=== PATIENT | female | born 1990 | race Caucasian/White ===

== ENCOUNTER 2017-08-08 09:06 | Emergency (ER) | payer MEDICAID ==
[~2017-08-08] VITALS: Wt 51.0 kg
[~2017-08-08 09:06] MED LIST: FER325 PO; IBUP800T25 PO; PERCOCET PO; PREN1TAB12 PO
[2017-08-08] MEDS ORDERED: PENICILLIN G BENZ 1.2 MIL UNIT SYG IM ONE (10:30)
[2017-08-08] MEDS ORDERED: IBUPROFEN 600 MG TAB PO ONE (10:30)
[2017-08-08] MEDS ORDERED: IBUP-1542 PO (10:41)
--- NOTE | 2017-08-08 10:45 | ERD ---
ER Documentation Chief Complaint Chief Complaint SORE THROAT X 3 DAYS HPI It is a 26-year-old female who presents to the ED with sore throat, pain with swallowing on and off 5 weeks. She states that in the last 3 days the pain is gotten worse. She is able to swallow but states that she has pain with liquids and solids. She feels the pain more on the left side of her throat. She denies fever or chills. Denies cough. Denies drooling. Denies difficulty breathing. Denies chest pain or shortness of breath. She has not taken any medication for her symptoms. Denies sick contacts. No other complaints. ROS All systems reviewed and are negative except as per history of present illness. Medications Home Meds Active Scripts Ibuprofen* (Motrin*) 600 Mg Tab, 600 MG PO Q6, #30 TAB Prov:FRANKIE RICHARDS PA-C 08/08/17 Ibuprofen* (Ibuprofen*) 800 Mg Tablet, 800 MG PO Q8, #20 TAB 0 Refills Prov:JUAN PABLO SHERIFF MD 05/27/16 Oxycodone Hcl/Acetaminophen (Percocet) 1 Tab Tab, 2 TAB PO Q4H Y for PAIN LEVEL 6-10, #30 TAB 0 Refills Prov:JUAN PABLO SHERIFF MD 05/27/16 Reported Medications Ferrous Sulfate* (Ferrous Sulfate*) 325 Mg Tabec, 325 MG PO DAILY, TAB 05/24/16 Vit/Fe Fumarate/Fa ( 1-1 Tablet) 1 Tab Tablet, 1 TAB PO DAILY 11/29/11 Allergies Allergies: Coded Allergies: No Known Allergies (Verified Allergy, Unknown, 11/29/11) VERIFIED WITH ALICIA ZHU 2160 11/29 PMhx/Soc History of Surgery: No Anesthesia Reaction: No Hx Neurological Disorder: No Hx Respiratory Disorders: No Hx Cardiac Disorders: No Hx Psychiatric Problems: No Hx Miscellaneous Medical Probl: No Hx Alcohol Use: No Hx Substance Use: No Hx Tobacco Use: No FmHx Family History: No coronary disease, No diabetes, No other Physical Exam Vitals Vital Signs Date Time Temp Pulse Resp B/P Pulse Ox O2 Delivery O2 Flow Rate FiO2 08/08/17 09:13 98.0 84 99 138/73 99 Physical Exam GENERAL: Well-developed, well-nourished female. Appears in no acute distress. HEAD: Normocephalic, atraumatic. EYES: Pupils are equally reactive bilaterally. EOMs grossly intact. No conjunctival erythema. ENT: Moist mucous membranes. No uvula deviation. No kissing tonsils. exudates on tonsils, left > right. No cervical lymph adenopathy. Trismus. No drooling. tonsillar enlargement left > right. no muffled/hot potato voice. no stridor NECK: Supple. No lymphadenopathy or thyromegaly. No meningismus. negative kernig. negative brudinski. LUNG: Clear to auscultation bilaterally. No rhonchi, wheezing, rales or coarse breath sounds. HEART: Regular rate and rhythm. No murmurs, rubs or gallops. SKIN: Normal color. Warm and dry. No rashes or lesions. Capillary refill < 2 seconds Results 24 hrs Current Medications Medications (Trade) Dose Ordered Sig/Elisa Route PRN Reason Start Time Stop Time Status Last Admin Dose Admin Penicillin G Benzathine (Bicillin La) 1,200,000 units ONCE ONCE IM 08/08/17 10:30 08/08/17 10:31 DC 08/08/17 10:39 Ibuprofen (Motrin) 600 mg ONCE ONCE PO 08/08/17 10:30 08/08/17 10:31 DC 08/08/17 10:29 Procedures/MDM ER COURSE: I kept the patient and/or family informed of laboratory and diagnostic imaging results throughout the emergency room course. MEDICAL DECISION MAKING: This is a 26-year-old female who presents with sore throat on and off 5 week worsening in the last 3 days. Vital signs were reviewed. Patient is afebrile. Patient is not hypoxic. Patient is not toxic or ill-appearing. Patient likely has pharyngitis of strep etiology. Low suspicion for peritonsillar abscess. Low suspicion for peritonsillar abscess, strep pharyngitis, mononucleosis, dental abscess. She was given penicillin 1.2 million units and ibuprofen. Tolerated well with no adverse reaction. DISCHARGE: At this time, patient is stable for discharge and outpatient management with no new complaints during the ER course. Patient was sent home with ibuprofen. Patient will be discharged home with instructions to recheck for new or worsening symptoms such as fever, nausea, weakness, LOC and to follow up with primary care in the next 1-2 days. Patient was advised to return to the ER for any new or worsening symptoms. Plan was discussed and patient and/or family understands and agrees. Home instructions were given. Departure Diagnosis: Primary Impression: Pharyngitis Pharyngitis/tonsillitis etiology: unspecified etiology Qualified Code: J02.9 - Pharyngitis, unspecified etiology Condition: Stable Patient Instructions: Pharyngitis, Strep (Presumed) Referrals: [facility] YOU HAVE RECEIVED A MEDICAL SCREENING EXAM AND THE RESULTS INDICATE THAT YOU DO NOT HAVE A CONDITION THAT REQUIRES URGENT TREATMENT IN THE EMERGENCY DEPARTMENT. FURTHER EVALUATION AND TREATMENT OF YOUR CONDITION CAN WAIT UNTIL YOU ARE SEEN IN YOUR DOCTORS OFFICE WITHIN THE NEXT 1-2 DAYS. IT IS YOUR RESPONSIBILITY TO MAKE AN APPOINTMENT FOR FOLOW-UP CARE. IF YOU HAVE A PRIMARY DOCTOR --you should call your primary doctor and schedule an appointment IF YOU DO NOT HAVE A PRIMARY DOCTOR YOU CAN CALL OUR PHYSICIAN REFERRAL HOTLINE AT IF YOU CAN NOT AFFORD TO SEE A PHYSICIAN YOU CAN CHOSE FROM THE FOLLOWING [facility] [address] [facility]. [facility] [address] [facility] [address] [facility]. [facility] [address] [facility]. [facility] [address] [facility]. [facility]. [address] Additional Instructions: Llame al doctor MAANA y jeff sherif HUNTER PARA DENTRO DE 1-2 [place].Dgale a la secretaria que nosotros le instruimos hacer esta hunter.Avise o llame si berry condicin se empeora antes de la hunter. Regresa aqui si peor o no mejor. FRANKIE RICHARDS PA-C Aug 08, 2017 10:45
--- NOTE | 2017-08-08 10:45 | ERD ---
ER Documentation Chief Complaint Chief Complaint SORE THROAT X 3 DAYS HPI It is a 26-year-old female who presents to the ED with sore throat, pain with swallowing on and off 5 weeks. She states that in the last 3 days the pain is gotten worse. She is able to swallow but states that she has pain with liquids and solids. She feels the pain more on the left side of her throat. She denies fever or chills. Denies cough. Denies drooling. Denies difficulty breathing. Denies chest pain or shortness of breath. She has not taken any medication for her symptoms. Denies sick contacts. No other complaints. ROS All systems reviewed and are negative except as per history of present illness. Medications Home Meds Active Scripts Ibuprofen* (Motrin*) 600 Mg Tab, 600 MG PO Q6, #30 TAB Prov:FRANKIE RICHARDS PA-C 08/08/17 Ibuprofen* (Ibuprofen*) 800 Mg Tablet, 800 MG PO Q8, #20 TAB 0 Refills Prov:JUAN PABLO SHERIFF MD 05/27/16 Oxycodone Hcl/Acetaminophen (Percocet) 1 Tab Tab, 2 TAB PO Q4H Y for PAIN LEVEL 6-10, #30 TAB 0 Refills Prov:JUAN PABLO SHERIFF MD 05/27/16 Reported Medications Ferrous Sulfate* (Ferrous Sulfate*) 325 Mg Tabec, 325 MG PO DAILY, TAB 05/24/16 Vit/Fe Fumarate/Fa ( 1-1 Tablet) 1 Tab Tablet, 1 TAB PO DAILY 11/29/11 Allergies Allergies: Coded Allergies: No Known Allergies (Verified Allergy, Unknown, 11/29/11) VERIFIED WITH ALICIA ZHU 5700 11/29 PMhx/Soc History of Surgery: No Anesthesia Reaction: No Hx Neurological Disorder: No Hx Respiratory Disorders: No Hx Cardiac Disorders: No Hx Psychiatric Problems: No Hx Miscellaneous Medical Probl: No Hx Alcohol Use: No Hx Substance Use: No Hx Tobacco Use: No FmHx Family History: No coronary disease, No diabetes, No other Physical Exam Vitals Vital Signs Date Time Temp Pulse Resp B/P Pulse Ox O2 Delivery O2 Flow Rate FiO2 08/08/17 09:13 98.0 84 99 138/73 99 Physical Exam GENERAL: Well-developed, well-nourished female. Appears in no acute distress. HEAD: Normocephalic, atraumatic. EYES: Pupils are equally reactive bilaterally. EOMs grossly intact. No conjunctival erythema. ENT: Moist mucous membranes. No uvula deviation. No kissing tonsils. exudates on tonsils, left > right. No cervical lymph adenopathy. Trismus. No drooling. tonsillar enlargement left > right. no muffled/hot potato voice. no stridor NECK: Supple. No lymphadenopathy or thyromegaly. No meningismus. negative kernig. negative brudinski. LUNG: Clear to auscultation bilaterally. No rhonchi, wheezing, rales or coarse breath sounds. HEART: Regular rate and rhythm. No murmurs, rubs or gallops. SKIN: Normal color. Warm and dry. No rashes or lesions. Capillary refill < 2 seconds Results 24 hrs Current Medications Medications (Trade) Dose Ordered Sig/Elisa Route PRN Reason Start Time Stop Time Status Last Admin Dose Admin Penicillin G Benzathine (Bicillin La) 1,200,000 units ONCE ONCE IM 08/08/17 10:30 08/08/17 10:31 DC 08/08/17 10:39 Ibuprofen (Motrin) 600 mg ONCE ONCE PO 08/08/17 10:30 08/08/17 10:31 DC 08/08/17 10:29 Procedures/MDM ER COURSE: I kept the patient and/or family informed of laboratory and diagnostic imaging results throughout the emergency room course. MEDICAL DECISION MAKING: This is a 26-year-old female who presents with sore throat on and off 5 week worsening in the last 3 days. Vital signs were reviewed. Patient is afebrile. Patient is not hypoxic. Patient is not toxic or ill-appearing. Patient likely has pharyngitis of strep etiology. Low suspicion for peritonsillar abscess. Low suspicion for peritonsillar abscess, strep pharyngitis, mononucleosis, dental abscess. She was given penicillin 1.2 million units and ibuprofen. Tolerated well with no adverse reaction. DISCHARGE: At this time, patient is stable for discharge and outpatient management with no new complaints during the ER course. Patient was sent home with ibuprofen. Patient will be discharged home with instructions to recheck for new or worsening symptoms such as fever, nausea, weakness, LOC and to follow up with primary care in the next 1-2 days. Patient was advised to return to the ER for any new or worsening symptoms. Plan was discussed and patient and/or family understands and agrees. Home instructions were given. Departure Diagnosis: Primary Impression: Pharyngitis Pharyngitis/tonsillitis etiology: unspecified etiology Qualified Code: J02.9 - Pharyngitis, unspecified etiology Condition: Stable Patient Instructions: Pharyngitis, Strep (Presumed) Referrals: [facility] YOU HAVE RECEIVED A MEDICAL SCREENING EXAM AND THE RESULTS INDICATE THAT YOU DO NOT HAVE A CONDITION THAT REQUIRES URGENT TREATMENT IN THE EMERGENCY DEPARTMENT. FURTHER EVALUATION AND TREATMENT OF YOUR CONDITION CAN WAIT UNTIL YOU ARE SEEN IN YOUR DOCTORS OFFICE WITHIN THE NEXT 1-2 DAYS. IT IS YOUR RESPONSIBILITY TO MAKE AN APPOINTMENT FOR FOLOW-UP CARE. IF YOU HAVE A PRIMARY DOCTOR --you should call your primary doctor and schedule an appointment IF YOU DO NOT HAVE A PRIMARY DOCTOR YOU CAN CALL OUR PHYSICIAN REFERRAL HOTLINE AT IF YOU CAN NOT AFFORD TO SEE A PHYSICIAN YOU CAN CHOSE FROM THE FOLLOWING [facility] [address] [facility]. [facility] [address] [place] [address] [facility] [address] [facility] [address] [facility]. [facility] [address] [facility]. [facility]. [address] Additional Instructions: Llame al doctor MAANA y jeff sherif HUNTER PARA [place]TRO DE 1-[address] [place].Dgale a la secretaria que nosotros le instruimos hacer esta hunter.Avise o llame si berry condicin se empeora antes de la hunter. Regresa aqui si peor o no mejor. FRANKIE RICHARDS PA-C Aug 08, 2017 10:45
--- NOTE | 2017-08-08 10:45 | ERD ---
ER Documentation Chief Complaint Chief Complaint SORE THROAT X 3 DAYS HPI It is a 26-year-old female who presents to the ED with sore throat, pain with swallowing on and off 5 weeks. She states that in the last 3 days the pain is gotten worse. She is able to swallow but states that she has pain with liquids and solids. She feels the pain more on the left side of her throat. She denies fever or chills. Denies cough. Denies drooling. Denies difficulty breathing. Denies chest pain or shortness of breath. She has not taken any medication for her symptoms. Denies sick contacts. No other complaints. ROS All systems reviewed and are negative except as per history of present illness. Medications Home Meds Active Scripts Ibuprofen* (Motrin*) 600 Mg Tab, 600 MG PO Q6, #30 TAB Prov:FRANKIE RICHARDS PA-C 08/08/17 Ibuprofen* (Ibuprofen*) 800 Mg Tablet, 800 MG PO Q8, #20 TAB 0 Refills Prov:JUAN PABLO SHERIFF MD 05/27/16 Oxycodone Hcl/Acetaminophen (Percocet) 1 Tab Tab, 2 TAB PO Q4H Y for PAIN LEVEL 6-10, #30 TAB 0 Refills Prov:JUAN PABLO SHERIFF MD 05/27/16 Reported Medications Ferrous Sulfate* (Ferrous Sulfate*) 325 Mg Tabec, 325 MG PO DAILY, TAB 05/24/16 Vit/Fe Fumarate/Fa ( 1-1 Tablet) 1 Tab Tablet, 1 TAB PO DAILY 11/29/11 Allergies Allergies: Coded Allergies: No Known Allergies (Verified Allergy, Unknown, 11/29/11) VERIFIED WITH ALICIA ZHU 9260 11/29 PMhx/Soc History of Surgery: No Anesthesia Reaction: No Hx Neurological Disorder: No Hx Respiratory Disorders: No Hx Cardiac Disorders: No Hx Psychiatric Problems: No Hx Miscellaneous Medical Probl: No Hx Alcohol Use: No Hx Substance Use: No Hx Tobacco Use: No FmHx Family History: No coronary disease, No diabetes, No other Physical Exam Vitals Vital Signs Date Time Temp Pulse Resp B/P Pulse Ox O2 Delivery O2 Flow Rate FiO2 08/08/17 09:13 98.0 84 99 138/73 99 Physical Exam GENERAL: Well-developed, well-nourished female. Appears in no acute distress. HEAD: Normocephalic, atraumatic. EYES: Pupils are equally reactive bilaterally. EOMs grossly intact. No conjunctival erythema. ENT: Moist mucous membranes. No uvula deviation. No kissing tonsils. exudates on tonsils, left > right. No cervical lymph adenopathy. Trismus. No drooling. tonsillar enlargement left > right. no muffled/hot potato voice. no stridor NECK: Supple. No lymphadenopathy or thyromegaly. No meningismus. negative kernig. negative brudinski. LUNG: Clear to auscultation bilaterally. No rhonchi, wheezing, rales or coarse breath sounds. HEART: Regular rate and rhythm. No murmurs, rubs or gallops. SKIN: Normal color. Warm and dry. No rashes or lesions. Capillary refill < 2 seconds Results 24 hrs Current Medications Medications (Trade) Dose Ordered Sig/Elisa Route PRN Reason Start Time Stop Time Status Last Admin Dose Admin Penicillin G Benzathine (Bicillin La) 1,200,000 units ONCE ONCE IM 08/08/17 10:30 08/08/17 10:31 DC 08/08/17 10:39 Ibuprofen (Motrin) 600 mg ONCE ONCE PO 08/08/17 10:30 08/08/17 10:31 DC 08/08/17 10:29 Procedures/MDM ER COURSE: I kept the patient and/or family informed of laboratory and diagnostic imaging results throughout the emergency room course. MEDICAL DECISION MAKING: This is a 26-year-old female who presents with sore throat on and off 5 week worsening in the last 3 days. Vital signs were reviewed. Patient is afebrile. Patient is not hypoxic. Patient is not toxic or ill-appearing. Patient likely has pharyngitis of strep etiology. Low suspicion for peritonsillar abscess. Low suspicion for peritonsillar abscess, strep pharyngitis, mononucleosis, dental abscess. She was given penicillin 1.2 million units and ibuprofen. Tolerated well with no adverse reaction. DISCHARGE: At this time, patient is stable for discharge and outpatient management with no new complaints during the ER course. Patient was sent home with ibuprofen. Patient will be discharged home with instructions to recheck for new or worsening symptoms such as fever, nausea, weakness, LOC and to follow up with primary care in the next 1-2 days. Patient was advised to return to the ER for any new or worsening symptoms. Plan was discussed and patient and/or family understands and agrees. Home instructions were given. Departure Diagnosis: Primary Impression: Pharyngitis Pharyngitis/tonsillitis etiology: unspecified etiology Qualified Code: J02.9 - Pharyngitis, unspecified etiology Condition: Stable Patient Instructions: Pharyngitis, Strep (Presumed) Referrals: [facility] YOU HAVE RECEIVED A MEDICAL SCREENING EXAM AND THE RESULTS INDICATE THAT YOU DO NOT HAVE A CONDITION THAT REQUIRES URGENT TREATMENT IN THE EMERGENCY DEPARTMENT. FURTHER EVALUATION AND TREATMENT OF YOUR CONDITION CAN WAIT UNTIL YOU ARE SEEN IN YOUR DOCTORS OFFICE WITHIN THE NEXT 1-2 DAYS. IT IS YOUR RESPONSIBILITY TO MAKE AN APPOINTMENT FOR FOLOW-UP CARE. IF YOU HAVE A PRIMARY DOCTOR --you should call your primary doctor and schedule an appointment IF YOU DO NOT HAVE A PRIMARY DOCTOR YOU CAN CALL OUR PHYSICIAN REFERRAL HOTLINE AT IF YOU CAN NOT AFFORD TO SEE A PHYSICIAN YOU CAN CHOSE FROM THE FOLLOWING [facility] [address] [facility]. [facility] [address] [place] [address] [facility] [address] [facility] [address] [facility]. [facility] [address] [facility]. [facility]. [address] Additional Instructions: Llame al doctor MAANA y jeff sherif HUNTER PARA DENTRO DE 1-[address] [place].Dgale a la secretaria que nosotros le instruimos hacer esta hunter.Avise o llame si berry condicin se empeora antes de la hunter. Regresa aqui si peor o no mejor. FRANKIE RICHARDS PA-C Aug 08, 2017 10:45
== END 2017-08-08 11:11 | disposition home or self-care (01) ==
LOC: FTE 09:06
DX: J02.9 Acute pharyngitis, unspecified (principal)
CPT/HCPCS: 96372; J0561; Z7502; Z7610

== ENCOUNTER 2017-08-22 14:17 | Emergency (ER) | payer MEDICAID ==
[~2017-08-22] VITALS: Ht 157.5 cm; Wt 51.3 kg
[~2017-08-22 14:17] MED LIST changes: +IBUP-1542 PO
[2017-08-22 14:27] VITALS: Ht 157.5 cm; Wt 51.3 kg
--- NOTE | 2017-08-22 15:08 | ERD ---
ER Documentation Chief Complaint Chief Complaint Complains of a sorethroat and neck pain HPI 26-year-old female presents with history of neck pain, left-sided facial pain recurring over the last 2 months. The patient was seen the first week of August, patient was treated with penicillin, given ibuprofen. She states she states that the pain improved for several days but has returned, and feels fullness on the left side of her neck. She notes that when she swallows or tries to eat something. She has not had any difficulty swallowing, handling her secretions, voice changes or drooling. She denies fevers or chills. ROS All systems reviewed and are negative except as per history of present illness. Medications Home Meds Active Scripts Ibuprofen* (Motrin*) 600 Mg Tab, 600 MG PO Q6, #30 TAB Prov:FRANKIE RICHARDS PA-C 08/08/17 Ibuprofen* (Ibuprofen*) 800 Mg Tablet, 800 MG PO Q8, #20 TAB 0 Refills Prov:JUAN PABLO SHERIFF MD 05/27/16 Oxycodone Hcl/Acetaminophen (Percocet) 1 Tab Tab, 2 TAB PO Q4H Y for PAIN LEVEL 6-10, #30 TAB 0 Refills Prov:JUAN PABLO SHERIFF MD 05/27/16 Reported Medications Ferrous Sulfate* (Ferrous Sulfate*) 325 Mg Tabec, 325 MG PO DAILY, TAB 05/24/16 Vit/Fe Fumarate/Fa ( 1-1 Tablet) 1 Tab Tablet, 1 TAB PO DAILY 11/29/11 Allergies Allergies: Coded Allergies: No Known Allergies (Verified Allergy, Unknown, 11/29/11) VERIFIED WITH ALICIA ZHU 733[address]aulette 11/29 PMhx/Soc History of Surgery: No Anesthesia Reaction: No Hx Neurological Disorder: No Hx Respiratory Disorders: No Hx Cardiac Disorders: No Hx Psychiatric Problems: No Hx Miscellaneous Medical Probl: No Hx Alcohol Use: No Hx Substance Use: No Hx Tobacco Use: No Physical Exam Vitals Vital Signs Date Time Temp Pulse Resp B/P Pulse Ox O2 Delivery O2 Flow Rate FiO2 08/22/17 14:27 98.3 100 20 132/81 99 Physical Exam General: Well-developed, well-nourished. The patient appears in no acute distress. HEENT: Head is normocephalic, atraumatic. No scleral icterus. Dentition intact , no facial abscess, TMs are normal, oropharynx is clear. Neck: Supple. Nontender. No masses, no meningismus. Lungs: Clear to auscultation. Normal air movement. Heart: Regular rate and rhythm. S1 and S2 are normal. No murmurs, gallops, or rubs. Abdomen: Nondistended. Extremities: No clubbing or cyanosis. Moving extremities x 4. No weakness. Neurologic: Alert and oriented 3. No focal deficits. Normal speech and gait. Skin: Normal turgor. No rash or lesions. Results 24 hrs DIAGNOSTIC IMAGING REPORT Patient: NAM PISANO : 1990 Age: 26 Sex: F MR #: [id number] DOS: 08/22/17 1449 Ordering MD: ANDERSON CORNELIUS PA-C Location: [facility] Room/Bed: PROCEDURE: Ultrasound of the soft tissues of the left side of the neck. CLINICAL INDICATION: Left neck pain. TECHNIQUE: High-resolution sonography of the left neck at the site of the painful lesion was performed in the axial and sagittal planes. COMPARISON: None FINDINGS: There is no fluid collection or mass in the left side of the neck. Incidental note is made of a benign 0.2 cm cyst in the left parotid gland. IMPRESSION: 1. No abnormality in the left side of the neck to account for the left neck pain. 2. Any further management regarding the left neck should be based on clinical grounds. RPTAT: QQ .Anatoliy Shane MD, MD Date Time Electronically viewed and signed by .Anatoliy Shane MD, MD on 08/22/2017 15:43 .R/ CC: ANDERSON CORNELIUS PA-C Procedures/MDM 26-year-old female comes in with left-sided facial neck pain going on for a month to 2 months, the patient's ultrasound of the neck shows no significant abnormalities, there is a small parotid gland. No evidence of an abscess, mass. No signs of deep space infection, and she will be advised to take ibuprofen for any pain. Departure Diagnosis: Primary Impression: Cyst of parotid gland Condition: ANDERSON Morales PA-C Aug 22, 2017 15:08
--- NOTE | 2017-08-22 15:43 | RADRPT ---
PROCEDURE: Ultrasound of the soft tissues of the left side of the neck. CLINICAL INDICATION: Left neck pain. TECHNIQUE: High-resolution sonography of the left neck at the site of the painful lesion was perfo rmed in the axial and sagittal planes. COMPARISON: None FINDINGS: There is no fluid collection or mass in the left side of the neck. Incidental note is made of a benign 0.2 cm cyst in the left parotid gland. IMPRESSION: 1. No abnormality in the left side of the neck to account for the left neck pain. 2. Any further management regarding the left neck should be based on clinical grounds. RPTAT: QQ .Anatoliy Shane MD, MD Date Time Electronically viewed and signed by .Anatoliy Shane MD, MD on 08/22/2017 15:43 .R/
== END 2017-08-22 16:23 | disposition home or self-care (01) ==
LOC: FTE 14:17
DX: K11.6 Mucocele of salivary gland (principal)
CPT/HCPCS: 76536; Z7502

== ENCOUNTER 2018-04-03 18:29 | Emergency (ER) | END 2018-04-03 20:24 | disposition home or self-care (01) ==